=== PATIENT | male | born 1960 | race Caucasian/White ===

== ENCOUNTER 2024-05-23 09:42 | Outpatient (CLI) | payer MEDICARE, OTHER, SELFPAY ==
--- NOTE | ~2024-05-23 | CT_ITS ---
EXAMINATION: CT abdomen pelvis wo con DATE: 05/23/2024 09:57 INDICATION: Kidney stone TECHNIQUE: Computed tomography (CT) of the abdomen and pelvis was performed without intravenous contr ast. Automated exposure control and iterative reconstruction technique were employed. The dose-length product was 389.23 mGy-cm. COMPARISON: None FINDINGS: 4 mm right middle lobe nodule. Mild discoid atelectasis at the posterior sulci at the bilateral lower lobes. Heart size is normal. No pericardial or pleural effusion. Small amount of aortic valve calcif ication. 5 mm cyst at the caudal tip of the liver. Gallbladder, spleen, pancreas and right adrenal gl and are normal. 1.5 cm low-attenuation left adrenal adenoma. 1.2 cm right renal cyst. Bilateral nonob structing nephrolithiasis with 4 stones in the left kidney measuring up to 5 mm and 3 stones measurin g up to 2 mm in the right kidney. No ureteral stones or hydronephrosis. Prostatomegaly measuring 5.5 x 5.0 cm. Partially decompressed bladder is unremarkable. There is moderate colonic diverticulosis wi th a sigmoid predominance. There is no adjacent inflammatory change to suggest diverticulitis. Small bowel and appendix are normal. No free intraperitoneal gas or fluid. No pathologically enlarged abdo karli or pelvic lymphadenopathy. Small fat-containing left inguinal hernia. L3-L5 laminectomies with instrumented anterior and posterior L3-S1 spinal fusion with bone graft cages at each level and bilat eral vertical uma and pedicle screw fixation. Intrathecal pain pump the subcutaneous tissues at the a nterior right pelvis with catheter extending into the central canal by interspinous process approach at L1-L2 and extending cephalad beyond the cephalad margin of the field of imaging at T10. IMPRESSION: 1. Bilateral nonobstructing nephrolithiasis. 2. Prostatomegaly. 3. Diverticulosis. Reviewed, dictated and finalized at location B. [facility]
== END 2024-05-23 09:43 | disposition home or self-care (01) ==
LOC: MICIMG 09:42
PROVIDERS: PCP Urology; Visit Provider Urology
DX: N20.0 Calculus of kidney (principal); N40.0 Benign prostatic hyperplasia without lower urinary tract symptoms; K57.30 Diverticulosis of large intestine without perforation or abscess without bleeding
CPT/HCPCS: 74176